=== PATIENT | male | born 1990 ===

== ENCOUNTER 2016-05-29 08:52 | Inpatient (IN) | payer MEDICAID, OTHER ==
[~2016-05-29] VITALS: Ht 190.5 cm; Wt 59.0 kg
[2016-05-29 09:38] LABS: BASOPHILS % (AUTO) 0.3 % (0.0-2.0); EOSINOPHILS % (AUTO) 1.1 % (1.0-6.0); HEMATOCRIT 40.4 % (41-53); HEMOGLOBIN 13.7 g/dL (13.5-17.5); LYMPHOCYTES # (AUTO) 1.5 K/uL (1.0-4.8); MEAN CORPUSCULAR HEMOGLOBIN 30.6 pg (26.0-34.0); MEAN CORPUSCULAR HGB CONC 33.9 G/dL (31.0-37.0); MEAN CORPUSCULAR VOLUME 90 fL (80-100); MONOCYTES # (AUTO) 0.5 K/uL (0.1-1.0); MONOCYTES % (AUTO) 7.9 % (2.0-9.0); NEUTROPHILS # (AUTO) 3.7 K/uL (1.8-7.7); NEUTROPHILS % (AUTO) 64.7 % (40.0-70.0); PLATELET COUNT (AUTO) 197 K/uL (150-450); RED BLOOD CELL COUNT(AUTO) 4.48 MIL/uL (4.50-5.90); WHITE BLOOD COUNT (AUTO) 5.8 K/uL (4.5-11.0)
[2016-05-29 09:47] LABS: ANION GAP 4 mmol/L (8-16); CARBON DIOXIDE 31 mmol/L (22-29); CHLORIDE 102 mmol/L (98-107); CREATININE 0.92 mg/dL (0.60-1.30); GLOMERULAR FILTR. RATE CALC > 60 mL/min (>60); POTASSIUM 3.7 mmol/L (3.5-5.1); SODIUM SERUM 137 mmol/L (136-145); UREA NITROGEN, BLOOD 5 mg/dL (7-18)
[2016-05-29 09:52] LABS: ALANINE AMINOTRANSFERASE 38 U/L (12-78); ALBUMIN 4.1 g/dL (3.4-5.0); ASPARTATE AMINOTRANSFERASE 24 U/L (15-37); BILIRUBIN,TOTAL 0.6 mg/dL (0.1-1.0); TOTAL PROTEIN, SERUM 7.6 g/dL (6.4-8.2)
[2016-05-29] MEDS ORDERED: ACETAMINOPHEN 325 MG TABLET PO PRN ×2 (10:45→12:30)
[2016-05-29] MEDS ORDERED: HALOPERIDOL 5 MG TABLET PO PRN (10:45)
[2016-05-29] MEDS ORDERED: MAGNESIUM HYDROXIDE SUSPENSION 30 ML UDCUP PO PRN (10:45)
[2016-05-29] MEDS ORDERED: MAG HYDROX/AL HYDROX/SIMETH ES 30 ML SUSPENSION UDCUP PO PRN (10:45)
[2016-05-29] MEDS ORDERED: LORazepam 2 MG TABLET PO PRN (10:45)
[2016-05-29] MEDS ORDERED: ZOLPIDEM TARTRATE 10 MG TABLET PO PRN (10:45)
[2016-05-29 11:40] VITALS: BP 114/76
[2016-05-29] MEDS ORDERED: INFLUENZA VIRUS VACCINE QVS 2016-17 (3YR+)/PF 60 MCG/0.5 ML SYRINGE IM ONE (12:30)
[2016-05-29 18:13] VITALS: BP 129/76
[2016-05-29 18:19] VITALS: BP 129/76
[2016-05-29 20:18] VITALS: BP 127/78
[2016-05-29] MEDS: QUEtiapine FUMARATE 25 MG TABLET PO SCH (21:14)
[2016-05-30 05:19] VITALS: BP 110/63
[2016-05-30] MEDS ORDERED: IBUPROFEN 400 MG TABLET PO PRN (07:30)
[2016-05-30 08:32] VITALS: BP 116/68
[2016-05-30 16:30] VITALS: BP 107/65
[2016-05-30] MEDS: QUEtiapine FUMARATE 25 MG TABLET PO SCH (21:32)
[2016-05-31 06:21] VITALS: BP 117/72
[2016-05-31 06:24] LABS: HEMOGLOBIN A1C 5.2 % (4.5-6.2)
[2016-05-31 06:49] LABS: CHOL/HDL RATIO 2.1 (4.2-7.3); THYROID STIMULATING HORMONE 0.51 uIU/mL (0.36-3.74)
[2016-05-31 08:51] VITALS: BP 105/52
[2016-05-31] MEDS ORDERED: QUET25TA PO (08:55)
== END 2016-05-31 13:15 | disposition home or self-care (01) | DRG 751 ==
LOC: EMS 08:53 → AHU 10:45 → 3EI 19:25
PROVIDERS: ADMIT Psychiatry & Neurology Psychiatry; ATTEND Psychiatry & Neurology Psychiatry
DX: F29 Unspecified psychosis not due to a substance or known physiological condition (principal); R45.851 Suicidal ideations; F32.9 Major depressive disorder, single episode, unspecified; F12.20 Cannabis dependence, uncomplicated; Z28.21 Immunization not carried out because of patient refusal; Z71.51 Drug abuse counseling and surveillance of drug abuser
CPT/HCPCS: 70450; 83036; 84443; 99285; G0480